=== PATIENT | female | born 1980 | race Caucasian/White ===

== ENCOUNTER → 2023-08-02 13:44 | Outpatient (REF) | payer OTHER, SELFPAY | LOC: HWRAD 13:44 | PROVIDERS: ATTENDING PHYSICIAN Obstetrics & Gynecology; FAMILY PHYSICIAN Internal Medicine | DX: R10.2 Pelvic and perineal pain (principal); N94.10 Unspecified dyspareunia | CPT/HCPCS: 76830; 76856 ==

== ENCOUNTER 2023-09-29 00:06 | Emergency (ER) | payer OTHER, SELFPAY ==
[2023-09-29 00:11] VITALS: BP 107/69
[2023-09-29] MEDS: ATIVAN 1 MG IV (00:21)
--- NOTE | 2023-09-29 00:23 | ED.GENMED ---
History of Present Illness
General
Chief Complaint: Alcohol Problem
Time Seen by Provider: 09/29/23 00:14
History of Present Illness
History of Present Illness:
43-year-old female presenting to the emergency department with alcohol intoxication. Patient was at a bar prior to arrival. She was found sitting on a sidewalk by police, intoxicated. Medics were subsequently called and patient was sent to the
emergency department. Patient Seroquel on arrival, admits to drinking alcohol. She arrives with small abrasion underneath her lip. She denies any headache, chest pain, difficulty breathing, abdominal pain. Patient limited historian given her
level of intoxication. No additional history obtained at this time.
Past History
Past History
ED Past Medical History: Asthma and Other (2004 ulcers, anemia)
ED Past Surgical History: Cholecystectomy and Other (Bilateral inguinal hernia or repairs)
Social History
Tobacco: Non-smoker
Alcohol: None
Drug: None
Personal:
Living: with family
Employment: Employed
Family History
Family History: Hypertension
Phy Exam
Physical Exam
Physical Exam:
General: No acute distress
HEENT: protecting airway, small abrasion underneath the nose and left
Neck: appears supple
CV: Normal heart rate, regular rhythm, no evidence of cyanosis
Resp: No accessory muscle use, no increased work of breathing, lungs clear to auscultation bilaterally
Abd: Soft and non-distended, no tenderness to palpation
Extremities: No deformities, no swelling, no erythema
Neuro: alert, no focal neurologic deficit
: deferred
Rectal: deferred
Psych: Crying, hysterical, however able to redirect and answer questions appropriately
Skin: Intact
Scores
Withdrawal Assessment of Alcohol
Withdrawal Assessment Completed?: Not applicable
Course
Orders/Labs/Results
Orders:
Orders
09/29/23 00:14
Lorazepam [Ativan] 1 mg IV NOW STA
Vital Signs
Initial and Last Documented VS:
Initial Vital Signs
Temp Pulse Resp BP Pulse Ox
98.3 F 107 19 107/69 98
09/29/23 00:11 09/29/23 00:11 09/29/23 00:11 09/29/23 00:11 09/29/23 00:11
Last Documented Vital Signs
Temp Pulse Resp BP Pulse Ox
98.3 F 75 16 131/78 98
09/29/23 00:11 09/29/23 03:44 09/29/23 03:44 09/29/23 03:44 09/29/23 03:44
MDM/Problems Addressed
MDM/Problems Addressed:
43-year-old female presenting for acute alcohol intoxication. Vital signs and arrival significant for mild tachycardia.
On exam, patient is in no acute distress, however is emotionally upset, crying, however answering questions appropriately. Does not sound toxic patient. Small abrasions to the upper lip, otherwise no significant signs of head trauma. Patient is
history of anxiety. In an effort to help calm down, will administer some Ativan. Patient will require clinical sobriety until able to be safely discharged home. Will continue to closely monitor.
04:00-patient is improved, was able to ambulate. Patient called her , at bedside. Feel stable for discharge. will drive her home. Discussed alcohol moderation. Return precautions discussed and patient verbalized understanding
*Critical Care Note
Total Time (30-74mins, 75-104mins- exclusive of procedures): Not Applicable
ED Attending Note
-
Portions of this chart may have been created with voice recognition software.� Occasional wrong word or��sound alike� substitutions may have occurred due to the inherent limitations of voice recognition software.
Discharge Plan
Departure
Patient Disposition: Home (Routine Discharge)
Date of Disposition: 09/29/23
Time of Disposition: 04:09
Patient with high blood pressure during this ER visit?: No
Condition: Good
Discharge Problem:
Alcohol intoxication
Instructions: Alcohol Intoxication ED
Prescriptions:
No Action
Albuterol
1 puff inhalation PRN PRN (Reason: asthma)
cetirizine 10 MG tablet
10 mg PO DAILY
escitalopram oxalate 20 MG tablet
20 mg PO DAILY
Iron
1 tab PO BID
Multivitamin
1 tab PO DAILY
oxycodone 5 MG tablet
5 mg PO Q4HPRN PRN (Reason: severe cramps) Qty: 6 0RF
Referrals:
PRIVATE,PHYSICIAN [Family Provider] -
Activity Restrictions/Additional Instructions:
You were seen in the emergency department for alcohol intoxication
Please follow-up closely with your primary care physician.
Return to the emergency department for any worsening of your symptoms, any feelings of wanting to hurt yourself or others, or any development of chest pain, difficulty breathing, abdominal pain with persistent vomiting and inability to tolerate food
or liquid by mouth (concern for dehydration), weakness, headache or confusion, fever greater than 100.4, or any additional symptoms that are concerning to you.
Thank you for choosing [facility].
Interventions
Interventions:
*Risk Screen - Suicide Last Done: 09/29/23 00:11
*General Assessment Last Done: 09/29/23 00:11
*Neglect/Abuse Screening Last Done: 09/29/23 04:37
*ED COVID-19 Vaccine History Last Done: 09/29/23 00:11
*Nursing Disposition Last Done: 09/29/23 04:37
ED- Neurological Assessment Last Done: 09/29/23 00:47
ED-Psychological Assessment Last Done: 09/29/23 00:47
Discharge Date and Time
Discharge Date/Time: 09/29/23 04:40
Print Language: TURKISH
[2023-09-29 00:50] VITALS: BMI 40.9
[2023-09-29 02:14] VITALS: BP 121/70
[2023-09-29 03:44] VITALS: BP 131/78
== END 2023-09-29 04:40 | disposition home or self-care (01) ==
LOC: EMR 00:06
PROVIDERS: EMERGENCY PHYSICIAN Student in an Organized Health Care Education/Training Program
DX: F10.129 Alcohol abuse with intoxication, unspecified (principal); S00.511A Abrasion of lip, initial encounter; Y92.480 Sidewalk as the place of occurrence of the external cause; J45.909 Unspecified asthma, uncomplicated; F41.9 Anxiety disorder, unspecified; Z82.49 Family history of ischemic heart disease and other diseases of the circulatory system; Z90.49 Acquired absence of other specified parts of digestive tract
CPT/HCPCS: 99282; 96374

== ENCOUNTER 2023-10-05 06:04 | Day surgery (SDC) | payer OTHER, SELFPAY ==
[2023-09-14 08:53] LABS: % Basophils 0.5 % (0-2); % Eosinophils 1.6 % (0-6); % Immature Granulocytes 0.2 % (0-0.5); % Monocytes 5.1 % (1.7-9.3); % Neutrophils 58.6 % (42.2-75.2); Absolute Eosinophils 0.1 10^3/uL (0-0.7); Absolute Lymphocytes 2.1 10^3/uL (1.2-3.4); Absolute Monocytes 0.3 10^3/uL (0.1-0.6); Absolute Neutrophils 3.6 10^3/uL (1.4-6.5); Hematocrit 35.7 % (37.0-47.0); Hemoglobin 11.9 g/dL (12.0-16.0); Mean Corp Hgb Conc. 33.3 g/dL (33.0-37.0); Mean Corpuscular Hgb 30.5 pg (27.0-31.0); Mean Corpuscular Volume 91.5 fL (81.0-99.0); Mean Platelet Volume 9.3 fL (7.4-10.4); Nucleated Red Blood Cells % 0 %; Platelet Count 286 10^3/uL (130-400); Red Cell Dist. Width 13.6 % (11.5-14.5); White Blood Cell Count 6.1 10^3/uL (4.8-10.8)
[2023-09-14 09:21] LABS: Blood Urea Nitrogen 14 mg/dl (7-17); Calcium 9.1 mg/dl (8.4-10.2); Carbon Dioxide 25 mmol/L (22-30); Chloride 104 mmol/L (98-107); Glucose 90 mg/dl (70-99); Potassium 4.3 mmol/L (3.5-5.1); Sodium 137 mmol/L (135-145); eGFR > 60.00
[2023-09-14 09:38] LABS: Beta HCG Quantitative < 2.39 mIU/ml
[2023-09-17 11:48] VITALS: BMI 39.1
[2023-10-05] VITALS (12 sets, daily range): BP systolic 101–120; BP diastolic 53–76; BMI 39.1
[2023-10-05] MEDS: TYLENOL 1000 MG PO (06:30)
[2023-10-05] MEDS: NORMOSOL-R 1000 IV (06:50)
--- NOTE | 2023-10-05 10:42 | W.IMMPOSTOP ---
Surgical Immed Post Op Note
-
Primary Surgeon: Janis Crowe DO
Program Supervisor: ALIA Hamilton
Pre-op Diagnosis: Chronic pelvic pain, adenomyosis, dysmenorrhea
Post-op Diagnosis: same; pelvic endometriosis
Procedure Performed: Robotic Total laparoscopic hysterectomy bilateral salpingectomy, excision and fulgeration of pelvic endometriosis; cystoscopy
Anesthesia Type: general ET, Dr. Becerra
Specimen / Cultures: 1. uterus, cervix, bilateral fallopian tubes, peritoneal endometriosis biopsy
Estimated Blood Loss: 10ml
IVF: 1200 ml crystalloid
Magdaleno : 200ml clear
Complications: none
Operative Findings: Normal sized uterus approx 7 cm; normal appearing tubes and let ovary. Right ovary with superficial endometriosis implant approx 3 mm (fulgerated). Superficial endometriosis implants (2) noted left pelvic peritoneum. One was
excised and the other fulgerated. Normal appearing bladder- bilateral ureteral jets noted-methylene blue noted both sides.
Counts correct times two.
Stable to recovery.
[2023-10-05] MEDS: LR 1000 IV (10:57)
[2023-10-05] MEDS: DILAUDID 0.5 MG IV (11:00)
[2023-10-05 11:22] LABS: Hematocrit 33.4 % (37.0-47.0); Hemoglobin 11.2 g/dL (12.0-16.0)
[2023-10-05 11:36] LABS: Blood Urea Nitrogen 21 mg/dl (7-17); Carbon Dioxide 26 mmol/L (22-30); Chloride 105 mmol/L (98-107); Estimated Creatinine Clearance 125 ml/min; Glucose 134 mg/dl (70-99); Potassium 4.5 mmol/L (3.5-5.1); Sodium 136 mmol/L (135-145); eGFR > 60.00
--- NOTE | 2023-10-05 16:11 | W.PN.OBG.DWH ---
Today's Communication / Plan
-
OOB, diet as tolerated
Analgesia
Anticipate dc in am
labs in am
Assessment/Plan
-
s/p RA TLH B/L salpingectomy fulgeration and excision endometriosis
Doing well.
Analgesia, OOB
lovenox tonight
Plan dc in am
Labs in am
Reviewed dc instructions
Erx oxycodone sent to pharm. Advised to take tyleonl 650mg Q 6hr and motrin 600mg Q6hr around the clock for the first 3 days.
follow up in office in 2 wks. Reviewed dc instructions.
Subjective Data
-
Postop check s/p RA TLH BL salpingctomy fulgeration /excision endometriosis
Feeling well. Just voided. Was feeling some bladder pressure
No complaints.
Adequate pain control
Objective Data
-
Laboratory Results
10/05/23 11:13
10/05/23 11:13
Vital Signs
Temp Pulse Resp BP Pulse Ox
97.6 F 69 20 110/68 96
10/05/23 14:30 10/05/23 14:30 10/05/23 14:30 10/05/23 14:30 10/05/23 11:15
VSS afeb
abd: soft +bs NDNT inc cdi
ext: no calf pain
No vaginal bleeding
[2023-10-05] MEDS: TORADOL 15 MG IV ×2 (16:26→22:00)
[2023-10-05] MEDS: LR IV (17:16)
--- NOTE | 2023-10-05 17:34 | PTCARENOTE ---
Pt received in bed, assisted pt out of bed for the first time. pt able to ambulate in [place], pt tolerating ambulation well. Pt able to tolerate regular diet no nausea or vomiting. Assisted pt to br. pt voiding with out any difficulties. However pt
forgot to used the measurement cup. Dr Crowe at bed side ok with md . pt remained to save urine in cup next time. Per d/c iv fluids at this time.
--- NOTE | 2023-10-05 17:47 | PTCARENOTE ---
Pt able to void 400ml of light blue urine, pt reporting no issued voiding. visiting with family at this time.
[2023-10-05] MEDS: LOVENOX 40 MG SC (18:14)
[2023-10-05] MEDS: TYLENOL 650 MG PO (18:21)
[2023-10-05] MEDS: ROXICODONE 2.5 MG PO (20:22)
[2023-10-05] MEDS: FLUSH (NSS) 3 FLUSH IV (22:02)
--- NOTE | 2023-10-05 22:23 | PTCARENOTE ---
patient OOB to bathroom @ 2200. Patient voided into toilet, missed voiding in hat to measure output.
--- NOTE | 2023-10-05 23:21 | PTCARENOTE ---
INT right anticub intact
[2023-10-06] MEDS: ATIVAN 0.5 MG PO (00:07)
[2023-10-06 00:11] VITALS: BP 98/52
[2023-10-06 04:25] VITALS: BP 98/56
[2023-10-06] MEDS: TORADOL 15 MG IV ×2 (04:26→08:25)
[2023-10-06] MEDS: LR IV (04:26)
[2023-10-06] MEDS: FLUSH (NSS) 3 FLUSH IV (04:28)
[2023-10-06 05:50] LABS: % Basophils 0.2 % (0-2); % Eosinophils 0.3 % (0-6); % Immature Granulocytes 0.3 % (0-0.5); % Lymphocytes 30.5 % (20.5-51.1); % Monocytes 5.1 % (1.7-9.3); % Neutrophils 63.6 % (42.2-75.2); Absolute Lymphocytes 3.1 10^3/uL (1.2-3.4); Absolute Monocytes 0.5 10^3/uL (0.1-0.6); Absolute Neutrophils 6.5 10^3/uL (1.4-6.5); Hematocrit 33.5 % (37.0-47.0); Hemoglobin 10.9 g/dL (12.0-16.0); Mean Corp Hgb Conc. 32.5 g/dL (33.0-37.0); Mean Corpuscular Hgb 30.9 pg (27.0-31.0); Mean Corpuscular Volume 94.9 fL (81.0-99.0); Mean Platelet Volume 9.1 fL (7.4-10.4); Nucleated Red Blood Cells % 0 %; Platelet Count 256 10^3/uL (130-400); Red Blood Cell Count 3.53 10^6/uL (4.20-5.40); Red Cell Dist. Width 13.6 % (11.5-14.5); White Blood Cell Count 10.2 10^3/uL (4.8-10.8)
[2023-10-06 06:13] LABS: Blood Urea Nitrogen 16 mg/dl (7-17); Carbon Dioxide 27 mmol/L (22-30); Chloride 106 mmol/L (98-107); Estimated Creatinine Clearance 109 ml/min; Sodium 138 mmol/L (135-145)
[2023-10-06 08:03] VITALS: BP 126/67
--- NOTE | 2023-10-06 08:17 | W.PN.OBG.DWH ---
Addendum entered and electronically signed by Denita Davis MD 10/06/23 10:21:
Incision: c/d/i. no erythema. induration or drainage from incision sites.
Original Note:
Today's Communication / Plan
-
dc home today.
Assessment/Plan
-
43yo POD#1 s/p RA-TLH/BS
-afvss, doing well post-op
-stable for dc home today. reviewed home care instructions. Medication Rx already sent to her pharmacy by surgeon. patient to f/u 2 weeks post-op
Subjective Data
-
feels well. pain has been controlled overnight. She denies n/v/f/c. Has been Ambulating, and OOB to void overnight. Denies significant vaginal bleeding. Tolerating PO intake.
Objective Data
-
Laboratory Results
10/06/23 05:26
10/06/23 05:26
Vital Signs
Temp Pulse Resp BP Pulse Ox
97.9 F 79 18 126/67 97
10/06/23 08:03 10/06/23 08:03 10/06/23 08:03 10/06/23 08:03 10/05/23 20:00
Gen: nad
Abd: soft, nt ,nd +bs
Ext: no LE ttp/edema
[2023-10-06] MEDS: LEXAPRO 20 MG PO (08:26)
[2023-10-06] MEDS: SENOKOT 8.6 MG PO (08:26)
--- NOTE | 2023-10-06 09:44 | PTCARENOTE ---
Received patient AA&O x 3, VSS, resting comfortably in bed eating breakfast, see I&O for inputs. Pt stating her pain level is a 3 out of 10 located in her abdomen. Lungs CTA, HRR, abdomen soft, +BS, pt OOB urinating qs. Abdomen with 5 red,
slightly bruised 3cm linear incision pham noted with no drainage from any. Pnematic comp. sleeve boots were @ bedside. Pt tolerating breakfast and stated she is excited to be discharge of home. Dr. James rounded on patient and pt discharged to
home order was processed.
== END 2023-10-06 10:00 | disposition home or self-care (01) ==
LOC: SDS 06:04
PROVIDERS: ATTENDING PHYSICIAN Obstetrics & Gynecology; FAMILY PHYSICIAN Internal Medicine
DX: N80.03 Adenomyosis of the uterus (principal); N80.111 Superficial endometriosis of right ovary; N80.3A Superficial endometriosis of the uterosacral ligament(s); G89.29 Other chronic pain; R10.2 Pelvic and perineal pain; N94.10 Unspecified dyspareunia; N80.30 Endometriosis of pelvic peritoneum, unspecified; N94.6 Dysmenorrhea, unspecified
CPT/HCPCS: 58571; 58662; 88305; 88307; 36415; 80048; 80051; 82565; 84520; 84702; 85014; 85018; 85025; 86850; 86900; 86901; 88341; 88342

== ENCOUNTER → 2024-05-19 10:29 | Outpatient (REF) | payer BC, SELFPAY | LOC: RAD 10:29 | PROVIDERS: ATTENDING PHYSICIAN Nurse Practitioner | DX: J45.909 Unspecified asthma, uncomplicated (principal) | CPT/HCPCS: 71046 ==